=== PATIENT | male | born 1990 | race African-American/Black ===

== ENCOUNTER 2024-12-25 18:06 | Emergency (ER) | payer OTHER ==
[~2024-12-25] VITALS: Ht 190.5 cm; Wt 87.6 kg
[2024-12-25] MEDS ORDERED: KETOROLAC TROMETHAMINE 60 MG/2 ML VIAL ONE (18:52)
[2024-12-25] MEDS: KETOROLAC TROMETHAMINE 60 MG/2 ML VIAL IM STA (18:59)
[2024-12-25] MEDS ORDERED: ULTRAM 50MG50 MG PO (19:52)
[2024-12-25 19:58] VITALS: PULSE 78; RESP 18; TEMP 97.9
[2024-12-25 20:10] VITALS: BP 126/86; PULSE 78; RESP 18; TEMP 97.9; O2SAT 99
== END 2024-12-25 20:00 | disposition home or self-care (01) ==
LOC: FSED 18:15
DX: M79.605 Pain in left leg (principal); M79.604 Pain in right leg; V53.5XXA Driver of pick-up truck or van injured in collision with car, pick-up truck or van in traffic accident, initial encounter; Y92.488 Other paved roadways as the place of occurrence of the external cause
CPT/HCPCS: 73590 ×2; 96372; 99284; J1885